=== PATIENT | male | born 1965 | race Two or more races ===

== ENCOUNTER 2017-10-02 10:00 | Inpatient (IN) | payer OTHER ==
[2017-09-23 11:37] VITALS: BMI 25.9
--- NOTE | 2017-09-30 14:19 | HP ---
HISTORY OF PRESENT ILLNESS Patient is a 51-year-old male, with a past medical history of hypertension, hyperlipidemia, and osteoarthritis. Patient is pending elective right total knee replacement scheduled for 10/02/[address] Manley PCP: Dr Madrid Recent travel:None Family History:Mother, alive and well, hypertension, hyperlipidemia father, unknown cause of sister, hypertension alive and well Social History:Resides at home, employed as a estimator project manager at the [employer] Smoking: none Alcohol:none Drugs: none REVIEW OF SYSTEMS CONSTITUTIONAL: Absent: fever, chills, diaphoresis, generalized weakness, malaise, loss of appetite, weight change HEENT: Absent: rhinorrhea, nasal congestion, throat pain, throat swelling, difficulty swallowing, mouth swelling, ear pain, eye pain, visual changes CARDIOVASCULAR: Absent: chest pain, syncope, palpitations, irregular heart rate, lightheadedness , peripheral edema RESPIRATORY: Absent: cough, shortness of breath, dyspnea with exertion, orthopnea, wheezing, stridor, hemoptysis GASTROINTESTINAL: Absent: abdominal pain, abdominal distension, nausea, vomiting, diarrhea, constipation, melena, hematochezia GENITOURINARY: Absent: dysuria, frequency, urgency, hesitancy, hematuria, flank pain, genital pain MUSCULOSKELETAL: Absent: myalgia, arthralgia, joint swelling, back pain, neck pain SKIN: Absent: rash, itching, pallor HEMATOLOGIC/IMMUNOLOGIC: Absent: easy bleeding, easy bruising, lymphadenopathy, frequent infections ENDOCRINE: Absent: unexplained weight gain, unexplained weight loss, heat intolerance, cold intolerance NEUROLOGIC: Absent: headache, focal weakness or paresthesias, dizziness, unsteady gait, seizure, mental status changes, bladder or bowel incontinence PSYCHIATRIC: Absent: anxiety, depression, suicidal or homicidal ideation, hallucinations. PHYSICAL EXAMINATION: GENERAL: Awake, alert, and fully oriented, in no acute distress. HEAD: Normal with no signs of trauma. EYES: Pupils equal, round and reactive to light, extraocular movements intact, sclera anicteric, conjunctiva clear. No lid lag. EARS, NOSE, THROAT: Ears normal, nares patent, oropharynx clear without exudates. Moist mucous membranes. NECK: Normal range of motion, supple without lymphadenopathy, JVD, or masses. LUNGS: Breath sounds equal, clear to auscultation bilaterally. No wheezes, and no crackles. No accessory muscle use. HEART: Regular rate and rhythm, normal S1 and S2 without murmur, rub or gallop. ABDOMEN: Soft, nontender, not distended, normoactive bowel sounds, no guarding, no rebound, no masses. No hepatomegaly or splenomegaly. MUSCULOSKELETAL: Normal range of motion at all joints. No bony deformities or tenderness. No CVA tenderness. UPPER EXTREMITIES: 2+ pulses, warm, well-perfused. No cyanosis. No clubbing. No peripheral edema. LOWER EXTREMITIES: 2+ pulses, warm, well-perfused. No calf tenderness. No peripheral edema. Right knee pain upon flexion and extension, no erythema no deformity noted NEUROLOGICAL: Cranial nerves II-XII intact. Normal speech. Normal gait. PSYCHIATRIC: Cooperative. Good eye contact. Appropriate mood and affect. SKIN: Warm, dry, normal turgor, no rashes or lesions noted, normal capillary refill. ASSESSMENT/PLAN: 1) mS Pending right total knee replacement On October [address] Manley 2) cardiovascular hypertension -Continue valsartan hydrochlorothiazide, Strict blood pressure monitoring
[2017-10-02] MEDS ORDERED: TRANEXAMIC ACID 1000 MG/10 ML VIAL IVPUSH ONE (11:48)
[2017-10-02] MEDS ORDERED: oxyCODONE HCL 10 MG SUSTAINED ACTING TABLET PO ONE (11:48)
[2017-10-02] MEDS ORDERED: CEFAZOLIN 2 GM/D5W 2 GM/50 ML ML IVPB ONE (11:48)
--- NOTE | 2017-10-02 11:55 | HP ---
History & Physical Update - History History: No Change - Physical Physical: No Change - Assessment Assessment: No Change - Plan Plan: No Change (full H&P from 09/30/2017)
[2017-10-02] MEDS ORDERED: ceFAZolin SODIUM 1 GM VIAL ONE ×2 (12:51→17:31)
[2017-10-02] MEDS ORDERED: DEXAMETHASONE SOD PHOSPHATE 4 MG/1 ML VIAL ONE (12:51)
[2017-10-02] MEDS ORDERED: ONDANSETRON 4 MG/2 ML VIAL ONE (12:51)
[2017-10-02] MEDS ORDERED: VANCOMYCIN 1,000 MG VIAL (RESTRICTED TO ID ONLY) ONE (12:51)
[2017-10-02] MEDS: oxyCODONE HCL 10 MG SUSTAINED ACTING TABLET PO ONE (13:00)
[2017-10-02] MEDS ORDERED: BUPIVACAINE HCL/PF (5 MG/ML) 30 ML VIAL IJ ONE (13:19)
[2017-10-02] MEDS ORDERED: BUPIVACAINE LIPOSOME/PF (EXPAREL) 266 MG/20 ML VIAL ONE (13:19)
[2017-10-02] MEDS ORDERED: SODIUM CHLORIDE 0.9% P/F 10 ML VIAL IJ ONE (13:19)
[2017-10-02] MEDS ORDERED: MIDAZOLAM HCL 2 MG/2 ML SINGLE DOSE VIAL ONE (13:19)
[2017-10-02] MEDS ORDERED: BENZOIN/ALOE VERA/STORAX/TOLU 58 ML BOTTLE ONE (13:35)
[2017-10-02] MEDS ORDERED: PROPOFOL 20 ML ONE ×3 (15:32→17:03)
[2017-10-02] MEDS ORDERED: ePHEDrine SULFATE 50 MG/1 ML AMPULE ONE (15:53)
[2017-10-02] MEDS ORDERED: MAG HYDROX/AL HYDROX/SIMETH 30 ML UNIT-DOSE CUP PO PRN (15:58)
[2017-10-02] MEDS ORDERED: ONDANSETRON 4 MG/2 ML VIAL IVPUSH PRN ×2 (15:58→18:03)
[2017-10-02] MEDS ORDERED: MAGNESIUM HYDROX 2400MG/30ML ORAL SUSPENSION 30 ML CUP PO PRN (15:58)
--- NOTE | 2017-10-02 17:58 | PN ---
Progress Note (short form) - Note Progress Note: S/P R TKA R TKA POD #0 - Pain control. -DVT PPx: -Chemical: ASA 81 mg po BID x 6 weeks -Mechanical: REGINA's, SCD's -Incentive Spirometry. -PT/OT/Rehab, OOB. -WBAT LLE RLE. -f/u drain output -f/u am labs. -Care per medical hospitalist team. -Discharge planning: f/u [facility] [place] office supervisor of operations for appointment: -Will follow. Brayan Manley MD (Orthopaedic Surgery)
[2017-10-02] MEDS ORDERED: LACTATED RINGERS SOLUTION 1,000 ML IV SCH (18:00)
--- NOTE | 2017-10-02 18:00 | OP ---
Operative Note - Note: Operative Date: 10/02/17 Pre-Operative Diagnosis: right knee DJD Operation: right total knee replacement Surgeon: Brayan Manley Medical Technician Assistant: Ricardo Manley Anesthesia: Spinal Estimated Blood Loss (mls): 75 Drains & Tubes with Location: 1 x deep Hemovac Fluid Volume Replaced (mls): 400 Operative Report Dictated: Yes
[2017-10-02] MEDS ORDERED: oxyCODONE HCL 5 MG TABLET PO PRN (18:03)
[2017-10-02] MEDS ORDERED: PROMETHAZINE HCL 25 MG/1 ML VIAL IVPUSH PRN (18:03)
[2017-10-02] MEDS ORDERED: ACETAMINOPHEN 325 MG TABLET (FP) PO ONE (18:15)
[2017-10-02] MEDS ORDERED: VANCOMYCIN 1 GRAM (PRE-DOCKED) 1,000 MG/250 ML BAG IVPB ONE (18:15)
[2017-10-02] MEDS: ASPIRIN COATED 81 MG TABLET.EC PO SCH (21:21)
[2017-10-02] MEDS: oxyCODONE HCL 10 MG SUSTAINED ACTING TABLET PO SCH (21:21)
[2017-10-02] MEDS: GABAPENTIN 300 MG CAPSULE (FP) PO SCH (21:21)
[2017-10-02] MEDS ORDERED: ASPIRIN 325 MG TABLET PO SCH (22:00)
[2017-10-02] MEDS ORDERED: GABAPENTIN 300 MG CAPSULE (FP) PO SCH (22:00)
[2017-10-02] MEDS: SENNOSIDES/DOCUSATE COMBO (SENNA PLUS) TABLET (UD) PO SCH (23:30)
[2017-10-02] MEDS: oxyCODONE HCL 5 MG TABLET PO PRN (23:30)
[2017-10-02] MEDS: CEFAZOLIN 1 GM/D5W 1 GM/50 ML BAG IVPB SCH (23:30)
[2017-10-03] MEDS: oxyCODONE HCL 5 MG TABLET PO PRN (05:30)
[2017-10-03] MEDS: ACETAMINOPHEN 325 MG TABLET (FP) PO SCH ×5 (06:38→17:47)
--- NOTE | 2017-10-03 07:11 | OP ---
DATE OF OPERATION: 10/02/2017 SURGEON: Brayan Manley M.D. BIOFUELS MANAGER: Ricardo Manley M.D., Filomena Meng PREOPERATIVE DIAGNOSIS: Severe tricompartmental osteoarthritis right knee with fixed varus and fixed flexed deformity. POSTOPERATIVE DIAGNOSIS: Severe tricompartmental osteoarthritis right knee with fixed varus and fixed flexed deformity. OPERATION PERFORMED: Right cemented posterior stabilized (Angelina knee). ANESTHESIA: Adductor block with spinal epidural anesthesia. ANTIBIOTICS GIVEN: 2 g Kefzol, 1 g vancomycin accordingly. OPERATION IN DETAIL: Patient correctly identified. Brought into the operating room. Timeout was called. Imaging was available for intraoperative evaluation. Midline incision utilized. The plane on the proximal medial aspect of the tibia was developed. A longitudinal incision was made in the quadriceps tendon curved around the medial aspect of the patella to the medial aspect of the tibia. This was flapped open to give excellent exposure to severe tricompartment osteoarthritis of the knee. Using Hohmann retractors posteriorly to lift the knee forward, the tibial cut was made to 90 degrees of the tibial shaft, and this was a bowed tibia to start with. The femoral bone cuts were made with the appropriate jig system. The patella was cut free hand from patella ligament to quadriceps tendon, and the appropriate lollipop jig for 27 mm patella button performed. Once this had been performed, the femur was cut using the jig system to receive a size 6 Triathlon posterior stabilized femur. The tibia measured a size 6 for universal baseplate. The polyethylene was a 27-mm polyethylene structure, and the polyethylene liner for the tibia was a posterior stabilized 6 x 11 mm polyethylene. Once the jig cuts and trialing components had been made and satisfactory alignment as well as satisfactory stability in the coronal and sagittal plane and patella tracking, which although slightly tilted and fixed with a small lateral release, all components were inserted and seated well, all extraneous cement removed, thorough lavage performed following this. Prior to cementing the implants, the bone bed was thoroughly lavaged with pulse lavage and the cement was mixed and placed in a slightly more liquid form that is low viscosity cement status for better bony ingrowth for this young patient. The knee, clinically postoperatively looked in a far better position with full extension. The tibia was extensively bowed. Closure as follows: Fascia, parapatellar tendon 1 Vicryl, subcutaneous 1 and 2-0 Vicryl, skin 3-0 Monocryl with Steri-Strips, drainage one 8-inch x1. Overall comment: Operation went well, no complications. MD JEREMY [id number]
[2017-10-03] MEDS: oxyCODONE HCL 10 MG SUSTAINED ACTING TABLET PO ONE (07:50)
--- NOTE | 2017-10-03 08:53 | PN ---
Progress Note (short form) - Note Progress Note: surgery POD #1 right TKA patient seen and examined at bedside. Patient states he vomited twice with the pain meds and has had slight nausea this morning. He is tolerating a regular diet although has a diminished appetite. He denies any CP, SOB, fever, or chills. Vital Signs Temp 97.5 F L 10/03/ 06:00 Pulse 68 10/03/17 06:00 Resp 18 10/03/17 06:00 BP 127/56 10/03/17 06:00 Pulse Ox 95 10/03/17 08:26 Intake & Output 10/02/17 10/02/17 10/03/17 11:59 23:59 11:59 Intake Total 1100 Output Total 10 503 Balance 1090 -503 Weight 163 lb Intake: IV 600 Oral 500 Output: Drainage 10 3 Left Knee 10 3 Urine 0 500 Void 0 500 Other: Voiding Method Urinal Urinal Height 5 ft 6.5 in Body Mass Index (BMI) 25.9 Weight Measurement Method Standing Scale PE: A&Ox3, NAD unlabore resp on RA right knee dressing C/D/I with drain in place. diffuse edema throughout appropriate to status. ROM from 0-75 degrees. b/l LE compartments soft, supple and non-tender to palpation with + 2 pedal pulses b/l Dorsi/plantar flexion 5/5. Problem List - Problems (1) S/P total knee arthroplasty Assessment/Plan: POD #1 doing well with some vomiting likely sensitive to Oxycodone. 1) continue DVT prophylaxis with Aspirin 81mg BID x 6 weeks 2) OOB with walker and assist WBAT 3) encourage IS 4) D/c planning for home tomorrow after drain removed. Code(s): Z96.659 - PRESENCE OF UNSPECIFIED ARTIFICIAL KNEE JOINT
[2017-10-03] MEDS ORDERED: traMADol HCL 50 MG TABLET PO PRN (09:09)
[2017-10-03 09:21] LABS: HEMATOCRIT 39.2 % (35.4-49); HEMOGLOBIN 13.2 GM/dl (11.7-16.9); MCHC 33.7 g/dl (32.0-35.9); MEAN PLT VOLUME 8.5 fl (7.5-11.1); PLATELET COUNT 230 K/MM3 (134-434); RBC 4.56 M/mm3 (4.00-5.60); RDW 13.4 % (11.9-15.9); WHITE BLOOD COUNT 14.8 K/mm3 (4.0-10.8)
[2017-10-03] MEDS: SENNOSIDES/DOCUSATE COMBO (SENNA PLUS) TABLET (UD) PO SCH ×2 (09:21→21:18)
[2017-10-03] MEDS: PANTOPRAZOLE 40 MG TABLET (FP) PO SCH (09:21)
[2017-10-03] MEDS: CEFAZOLIN 1 GM/D5W 1 GM/50 ML BAG IVPB SCH (09:21)
[2017-10-03] MEDS: HYDROCHLOROTHIAZIDE 25 MG TABLET (FP) PO SCH (09:22)
[2017-10-03] MEDS: oxyCODONE HCL 10 MG SUSTAINED ACTING TABLET PO SCH ×2 (09:23→21:18)
[2017-10-03] MEDS: VALSARTAN 160 MG TABLET (UD) PO SCH (09:23)
[2017-10-03] MEDS: GABAPENTIN 300 MG CAPSULE (FP) PO SCH ×2 (09:23→21:17)
[2017-10-03] MEDS: MULTIVITAMINS (DAILY MVI) TABLET (FP) PO SCH (09:24)
[2017-10-03] MEDS: ASPIRIN COATED 81 MG TABLET.EC PO SCH ×2 (09:24→21:17)
[2017-10-03 09:25] LABS: ANION GAP 6 (8-16); BLOOD UREA NITROGEN 14 mg/dl (7-18); CALCIUM 9.1 mg/dl (8.4-10.2); CHLORIDE 101 mmol/L (98-107); CO2 25 mmol/L (22-28); GLUCOSE,RANDOM 163 mg/dl (74-106); POTASSIUM 4.1 mmol/L (3.5-5.1); SODIUM 132 mmol/L (136-145)
[2017-10-03] MEDS ORDERED: PATIENT'S OWN MEDICATION (NON-FORMULARY) (Valsartan/Hydrochlorothiazide [Valsartan-Hctz 32 PO SCH (10:00)
[2017-10-03] MEDS ORDERED: ROSUVASTATIN CA 40 MG TABLET PO SCH (22:00)
[2017-10-04] MEDS: ACETAMINOPHEN 325 MG TABLET (FP) PO SCH ×2 (00:40→06:14)
[2017-10-04 08:14] LABS: HEMATOCRIT 35.6 % (35.4-49); HEMOGLOBIN 12.4 GM/dl (11.7-16.9); MCH 29.9 pg (25.7-33.7); MCHC 34.7 g/dl (32.0-35.9); MEAN CELL VOLUME 86.2 fl (80-96); MEAN PLT VOLUME 8.5 fl (7.5-11.1); PLATELET COUNT 201 K/MM3 (134-434); RBC 4.14 M/mm3 (4.00-5.60); RDW 13.5 % (11.9-15.9); WHITE BLOOD COUNT 12.8 K/mm3 (4.0-10.8)
--- NOTE | 2017-10-04 09:59 | DS ---
"Physical Exam: SUBJECTIVE: Patient seen and examined, patient reports feeling well, ambulated the hallway without difficulty with a walker, denies any chest pain or shortness of breath, reports minimal pain to the right lower extremity, he denies any paresthesia to the extremity. OBJECTIVE: Patient is a 51-year-old male, with a past medical history of hypertension, hyperlipidemia, and osteoarthritis. Patient is s/p right total knee replacement , 10/02/[address] Gibson, spinal anesthesia. Vital Signs Period Temp Pulse Resp BP Sys/Cook Pulse Ox Last 24 Hr 98.4 F-99.2 F 72-80 18-21 108-125/54-71 96-100 PHYSICAL EXAM GENERAL: The patient is awake, alert, and fully oriented, in no acute distress. HEAD: Normal with no signs of trauma. EYES: PERRL, extraocular movements intact, sclera anicteric, conjunctiva clear. ENT: Ears normal, nares patent, oropharynx clear without exudates, moist mucous membranes. NECK: Trachea midline, full range of motion, supple. LUNGS: Breath sounds equal, clear to auscultation bilaterally, no wheezes, no crackles, no accessory muscle use. HEART: Regular rate and rhythm, S1, S2 without murmur, rub or gallop. ABDOMEN: Soft, nontender, nondistended, normoactive bowel sounds, no guarding, no rebound, no hepatosplenomegaly, no masses. EXTREMITIES: 2+ pulses, warm, well-perfused, no edema. RIGHT LOWER EXTREMITY: dressing cdi, less than 3 second cappillary refill, + 3 pedal pulse. NEUROLOGICAL: Cranial nerves II through XII grossly intact. Normal speech, gait not observed. PSYCH: Normal mood, normal affect. SKIN: Warm, dry, normal turgor, no rashes or lesions noted. LABS Laboratory Results - last 24 hr 10/04/17 08:00 WBC 12.8 H RBC 4.14 Hgb 12.4 Hct 35.6 MCV 86.2 MCH 29.9 MCHC 34.7 RDW 13.5 Plt Count 201 MPV 8.5 HOSPITAL COURSE: Patient was admitted to the medical surgical floor after an elective right total knee replacement, Dr gibson, spinal anesthesia. patient ambulated the hallway with physical therapy on post operative day 1 and physical therapy (home ) was recommend upon discharge. Patient's pain was controlled with narcotic and non-narcotic medications. Patient's hemovac drain was removed on post operative day 2, intact and patient tolerated well. He has a past medical history of hypertension, valsartan/hctz was continued throughout admission. Blood pressure remained at goal. Date of Admission:10/02/17 Date of Discharge: 10/04/17 Minutes to complete discharge: 45 Discharge Summary Reason For Visit: UNILATERAL POST TRAUMATIC OA RIGHT KNEE Current Active Problems S/P total knee arthroplasty (Acute) Condition: Improved - Instructions Diet, Activity, Other Instructions: Dr. Gibson Discharge instructions for Knee Replacement Post-Op Instructions: Physical Activity: Physical Therapy will come to your home for the first 5 days. You will be set up with outpatient PT at your first post-operative visit. Use assistive devices for ambulation at all times. Weight bearing as tolerated on your surgical side. Do not put pillows under your knee. You may place pillows under the heel. Wound care: Leave your surgical dressing in place. Do not change the dressing until seen by your surgeon in the office. No baths or showers. Do not submerge your incision in water. Do not apply any ointments or lotions to your incision. Please call the office if our dressing is soiled/dirty or is falling off. Apply graduated compression stockings (TEDS) to both lower extremities-remove daily for hygiene only. Diet: There are no dietary restrictions: Eat healthy, high-fiber foods. Drink 6 to 8 glasses of liquid each day. This will keep your bowels regular. Pain Management: Any pain prescription medications ordered should be taken as prescribed for moderate to severe pain. Do not take additional Tylenol while taking Percocet. TAKE ASPIRIN 81MG TWO TIMES A DAY FOR A TOTAL OF 6 WEEKS TO PREVENT BLOOD CLOTS. Call Dr. Gibson for any of the following: Severe pain not relieved by medications Fever of 101 or higher Excessive bleeding or drainage on the dressing If you experience chest pain or shortness of breath, please seek emergency care immediately. Please call the office at to confirm your post-op appointment for the week following your surgery. [place] prescription monitoring program This report was requested by: Chela Ventura | Reference #: [id number] Others' Prescriptions Patient Name: Harman Albert Date: 1965 Address: [address] [place] [address] Sex: Male Rx Written Rx Dispensed Drug Quantity Days Supply Prescriber Name 09/19/2017 09/21/2017 hydrocodone-acetaminophen 7.5-300 mg tablet 90 30 Brayan Gibson MS, MD Referrals: Ricardo Gibson MD [Staff Physician] - Disposition: VNS/HOME HEALTH CARE - Home Medications Comprehensive Discharge Medication List: Ambulatory Orders Rosuvastatin [Crestor -] 40 mg PO DAILY 09/23/17 Valsartan/Hydrochlorothiazide [Valsartan-Hctz 320-25 mg Tab] 1 each PO DAILY Hydrocodone/Acetaminophen [Vicodin Es 7.5-300 mg Tablet] 1 each PO BID PRN 10/02 This patient is new to me today: No Emergency Visit: No Critical Care patient: No - Discharge Referral Referred to [facility] No"
[2017-10-04] MEDS: VALSARTAN 160 MG TABLET (UD) PO SCH (10:17)
[2017-10-04] MEDS: ASPIRIN COATED 81 MG TABLET.EC PO SCH (10:17)
[2017-10-04] MEDS: PANTOPRAZOLE 40 MG TABLET (FP) PO SCH (10:17)
[2017-10-04] MEDS: GABAPENTIN 300 MG CAPSULE (FP) PO SCH (10:17)
[2017-10-04] MEDS: MULTIVITAMINS (DAILY MVI) TABLET (FP) PO SCH (10:17)
[2017-10-04] MEDS: SENNOSIDES/DOCUSATE COMBO (SENNA PLUS) TABLET (UD) PO SCH (10:18)
[2017-10-04] MEDS: HYDROCHLOROTHIAZIDE 25 MG TABLET (FP) PO SCH (10:18)
[2017-10-04] MEDS: oxyCODONE HCL 10 MG SUSTAINED ACTING TABLET PO SCH (10:18)
[2017-10-04 10:22] VITALS: BP 139/70; PULSE 70; TEMP 98.9
--- NOTE | 2017-10-10 14:43 | PATH ---
Surgical Pathology Report Patient Name: QING CARDOSO Med. Rec. #: [id number] /Age/Gender: 1965 (Age: 51) / M Account: [id number] Location: [facility] MED-SURG Taken: 10/02/2017 Received: 10/02/2017 Reported: 10/10/2017 Physicians: Brayan Manley M.D. Specimen(s) Received BONE RIGHT KNEE Clinical History Osteoarthritis Final Diagnosis BONE, RIGHT KNEE, TOTAL KNEE REPLACEMENT: DEGENERATIVE JOINT DISEASE. Electronically Signed Chela Moy M.D. Gross Description Received in formalin labeled "bone right knee," is a 14.0 x 13.5 x 2.4 cm aggregate of multiple portions of bone and soft tissue, consistent with knee bones. There are multiple areas of eburnation present, measuring up to 3.0 cm the greatest dimension. The remaining articular surfaces are garvin-yellow and focally nodular. The underlying trabecular bone is yellow and hard. Spray Unit Feeder sections are submitted in one cassette, following decalcification. 10/04/2017 [facility]10/04/2017
== END 2017-10-04 11:07 | disposition home health service (06) | DRG 302 ==
LOC: FM/S 11:24 → OBSVTOIN 11:24 → UNDOADMOB 11:24 → INTOOBSV 11:24 → FM/S 11:24
PROVIDERS: ADMIT Orthopaedic Surgery Orthopaedic Surgery of the Spine; ATTEND Orthopaedic Surgery Orthopaedic Surgery of the Spine
PROC: 0SRC069 Replacement of Right Knee Joint with Oxidized Zirconium on Polyethylene Synthetic Substitute, Cemented, Open Approach (ICD-10-PCS; principal; 2017-10-02 16:07)
DX: M17.11 Unilateral primary osteoarthritis, right knee (principal); M21.161 Varus deformity, not elsewhere classified, right knee; I10 Essential (primary) hypertension; E78.5 Hyperlipidemia, unspecified
CPT/HCPCS: 36415; 73560-TC-RT-FY; 80048; 85027; 88304-TC; 88311-TC; 94760; 97116-GP; 97162-GP

== ENCOUNTER 2018-02-07 06:37 | Day surgery (SDC) | payer OTHER ==
[2018-01-31 12:44] VITALS: BMI 26.4
[2018-02-07] MEDS ORDERED: ceFAZolin SODIUM 1 GM VIAL IVPB ONE (08:13)
--- NOTE | 2018-02-07 08:54 | OP ---
Operative Note - Note: Operative Date: 02/07/18 Pre-Operative Diagnosis: Right 4th trigger finger Operation: Open right 4th trigger finger release Findings: Tourniquet Pressure: 250mmHg Tourniquet Time: 13 minutes Post-Operative Diagnosis: Same as Pre-op Surgeon: Brayan Manley Hollow Handle Knife Assembler: Ricardo Manley Anesthesiologist/ASSISTANT ELEMENTARY TEACHER: Joey Black Anesthesia: General (LMA) Estimated Blood Loss (mls): 0 Fluid Volume Replaced (mls): 400 (Crystalloid) Operative Report Dictated: Yes
--- NOTE | 2018-02-07 08:56 | PN ---
Progress Note (short form) - Note Progress Note: 52M s/p open RIGHT 4th trigger finger release POD #0. -Pain control: Meloxicam, Percocet ordered to patient's pharmacy from out outpatient office. -NWB RUE. -Keep dressing clean and dry. -f/u [facility] [place] office Saturday02/14/2018; call for appointment; . Brayan Manley MD (Orthopaedic Surgery).
[2018-02-07] MEDS ORDERED: ONDANSETRON 4 MG/2 ML VIAL IVPUSH PRN (09:02)
[2018-02-07] MEDS ORDERED: oxyCODONE HCL 5 MG TABLET PO PRN (09:02)
[2018-02-07] MEDS ORDERED: LACTATED RINGERS SOLUTION 1,000 ML IV SCH (09:15)
[2018-02-07] MEDS ORDERED: ONDANSETRON 4 MG/2 ML VIAL ONE (09:19)
[2018-02-07] MEDS ORDERED: PROMETHAZINE HCL 25 MG/1 ML VIAL ONE (09:31)
[2018-02-07] MEDS ORDERED: PROMETHAZINE HCL 25 MG/1 ML VIAL IVPUSH PRN (09:32)
[2018-02-07] MEDS ORDERED: LOSARTAN 50MG/HCTZ 12.5MG 1 TAB (FP) PO SCH (10:00)
[2018-02-07] MEDS ORDERED: PATIENT'S OWN MEDICATION (NON-FORMULARY) (Losartan/Hydrochlorothiazide [Losartan-Hctz 100- PO SCH (10:00)
[2018-02-07 10:45] VITALS: BP 118/74; PULSE 68; TEMP 98
--- NOTE | 2018-02-07 14:07 | OP ---
DATE OF OPERATION: 02/07/2018 SURGEON: Brayan Manley MD LOADER OPERATOR SUPERVISOR: Ricardo Manley MD PREOPERATIVE DIAGNOSIS: Right 4th finger trigger-finger. POSTOPERATIVE DIAGNOSIS: Right 4th finger trigger-finger. OPERATION PERFORMED: Right trigger-finger release. ANESTHESIA: General. TOURNIQUET TIME: 13 minutes. OPERATION IN DETAIL: The patient was positioned supine, right upper extremity prepped in the routine manner with Betadine scrub solution, wiped with alcohol. DuraPrep applied. A free drape of the right upper extremity performed. Time-out was called. Imaging was available for intraoperative evaluation. The right hand was placed, the palmar aspect was facing upwards. In the primary crease, that is the transverse crease, the incision was made over the 4th MPJ (that is metacarpophalangeal joint), a transverse incision resulted in easy exposure to the palmar aponeurosis. This was transected, taking the dissection down to the A1 bryn. The A1 bryn was then freed. Metzenbaum scissors placed deep to the bryn, and the bryn incised about 1.5 cm distal to the structure. Approximately a small adherent area of fibrous tissues also freed appropriately. No complications. Hemostasis was achieved with bipolar Bovie. The wounds were lavaged and closed with 3-0 nylon interrupted sutures. Brayan Manley MD [id number]
== END 2018-02-07 11:15 | disposition home or self-care (01) ==
LOC: FASU 06:37
PROVIDERS: ATTEND Orthopaedic Surgery Orthopaedic Surgery of the Spine
PROC: 0LN70ZZ Release Right Hand Tendon, Open Approach (ICD-10-PCS; principal; 2018-02-07 09:00)
DX: M65.341 Trigger finger, right ring finger (principal)
CPT/HCPCS: 94760

== ENCOUNTER 2020-05-13 07:12 | Day surgery (SDC) | payer BC, OTHER ==
[2020-05-09 10:09] VITALS: BMI 26.2
[2020-05-13] MEDS ORDERED: BUPIVACAINE HCL/PF 2.5 MG/ML - 30 ML VIAL IJ ONE (08:05)
[2020-05-13] MEDS ORDERED: methylPREDNISolone ACET (DEPO) 40 MG/1 ML VIAL ONE (08:05)
[2020-05-13] MEDS ORDERED: BUPIVACAINE HCL/PF 0.25% (2.5MG/ML) 10 ML VIAL ONE (08:16)
[2020-05-13] MEDS ORDERED: MIDAZOLAM HCL 2 MG/2 ML SINGLE DOSE VIAL ONE (08:47)
[2020-05-13] MEDS ORDERED: PROPOFOL 20 ML ONE ×2 (08:50)
[2020-05-13] MEDS ORDERED: SUCCINYLCHOLINE CHLORIDE 200 MG/10 ML SYRINGE ONE (08:50)
[2020-05-13] MEDS ORDERED: ONDANSETRON 4 MG/2 ML VIAL ONE ×2 (08:51→09:58)
[2020-05-13] MEDS ORDERED: ceFAZolin SODIUM 1 GM VIAL ONE (08:59)
[2020-05-13] MEDS ORDERED: ceFAZolin SODIUM 1 GM VIAL IVPB ONE (09:01)
[2020-05-13] MEDS ORDERED: DEXAMETHASONE SOD PHOSPHATE 4 MG/1 ML VIAL ONE (09:17)
[2020-05-13] MEDS ORDERED: oxyCODONE HCL 5 MG TABLET PO PRN (09:49)
[2020-05-13] MEDS ORDERED: ONDANSETRON 4 MG/2 ML VIAL IVPUSH PRN (09:49)
[2020-05-13] MEDS ORDERED: ACETAMINOPHEN 1000 MG/100 ML VIAL (NON FORMULARY) IVPB ONE (09:51)
[2020-05-13] MEDS ORDERED: ACETAMINOPHEN INJECTION 100 ML IVPB ONE (09:58)
[2020-05-13] MEDS ORDERED: ROSUVASTATIN CA 20 MG TABLET (FP) PO SCH (10:00)
[2020-05-13] MEDS ORDERED: LOSARTAN 50MG/HCTZ 12.5MG 1 TAB PO SCH (10:00)
[2020-05-13] MEDS ORDERED: oxyCODONE HCL 5 MG TABLET ONE (10:41)
[2020-05-13 11:04] VITALS: TEMP 98.2
[2020-05-13 11:50] VITALS: BP 114/72; PULSE 66
== END 2020-05-13 11:30 | disposition home or self-care (01) ==
LOC: FASU 07:12
PROVIDERS: ATTEND Orthopaedic Surgery Orthopaedic Surgery of the Spine
PROC: 0LN70ZZ Release Right Hand Tendon, Open Approach (ICD-10-PCS; principal; 2020-05-13 09:00)
DX: M65.311 Trigger thumb, right thumb (principal)
CPT/HCPCS: 94760; J0131

== ENCOUNTER 2023-01-16 05:59 | Day surgery (SDC) | payer BC ==
[2023-01-14 09:29] VITALS: BMI 27.9
[2023-01-16] MEDS ORDERED: SUCCINYLCHOLINE CHLORIDE 200 MG/10 ML SYRINGE ONE (07:18)
[2023-01-16] MEDS ORDERED: ceFAZolin SODIUM 1 GM VIAL ONE ×2 (07:22→11:54)
[2023-01-16] MEDS ORDERED: METOCLOPRAMIDE HCL INJECTION 10 MG/2 ML VIAL ONE (07:22)
[2023-01-16] MEDS ORDERED: SODIUM CHLORIDE 0.9% P/F 10 ML VIAL IJ ONE ×2 (07:22→08:09)
[2023-01-16] MEDS ORDERED: DEXAMETHASONE SOD PHOSPHATE 4 MG/1 ML VIAL ONE (07:22)
[2023-01-16] MEDS ORDERED: ONDANSETRON 4 MG/2 ML VIAL ONE (07:22)
[2023-01-16] MEDS ORDERED: PROPOFOL 80 ML ONE (07:24)
[2023-01-16] MEDS ORDERED: MIDAZOLAM HCL 2 MG/2 ML SINGLE DOSE VIAL ONE ×2 (07:25→08:59)
[2023-01-16] MEDS ORDERED: BUPIVACAINE LIPOSOME/PF (EXPAREL) 266 MG/20 ML VIAL ONE (07:36)
[2023-01-16] MEDS ORDERED: BUPIVACAINE HCL/PF 0.5% (5MG/ML) 10 ML VIAL ONE (07:36)
[2023-01-16] MEDS ORDERED: VANCOMYCIN 1,000 MG VIAL (RESTRICTED TO ID ONLY) ONE (09:40)
[2023-01-16] MEDS ORDERED: TRANEXAMIC ACID 1000 MG/10 ML VIAL ONE ×2 (09:49→11:53)
[2023-01-16] MEDS ORDERED: PROPOFOL 40 ML ONE ×2 (10:56→11:38)
[2023-01-16] MEDS ORDERED: LACTATED RINGERS SOLUTION 1,000 ML IV SCH ×2 (13:15→14:30)
[2023-01-16] MEDS ORDERED: LABETALOL HCL 5 MG/1 ML (100MG/20 ML VIAL) ONE (13:25)
[2023-01-16] MEDS ORDERED: oxyCODONE HCL 5 MG TABLET PO PRN (14:12)
[2023-01-16] MEDS ORDERED: ONDANSETRON 4 MG/2 ML VIAL IVPUSH PRN ×2 (14:12→14:26)
[2023-01-16] MEDS ORDERED: NALOXONE HCL 0.4 MG/ML VIAL IVPUSH PRN (14:12)
[2023-01-16] MEDS ORDERED: IBUPROFEN 400 MG TABLET (FP) PO PRN (14:12)
[2023-01-16] MEDS: ACETAMINOPHEN 1000 MG/100 ML BAG IVPB SCH ×2 (14:20→21:38)
[2023-01-16] MEDS ORDERED: MAG HYDROX/AL HYDROX/SIMETH 30 ML UNIT-DOSE CUP PO PRN (14:26)
[2023-01-16] MEDS ORDERED: MAGNESIUM HYDROX 2400MG/30ML ORAL SUSPENSION 30 ML CUP PO PRN (14:26)
[2023-01-16] MEDS ORDERED: CEFAZOLIN SODIUM 2 GM in DEXTROSE 5%-WATER 100 ML IVPB SCH (14:30)
[2023-01-16] MEDS ORDERED: KETOROLAC TROMETHAMINE 15 MG/ML VIAL IVPUSH ONE (14:45)
[2023-01-16] MEDS ORDERED: KETOROLAC TROMETHAMINE 30 MG/1 ML VIAL ONE (14:47)
[2023-01-16] MEDS: oxyCODONE HCL 5 MG TABLET PO PRN ×2 (17:30→21:41)
[2023-01-16] MEDS: CEFAZOLIN SODIUM 2 GM in DEXTROSE 5%-WATER 100 ML IVPB SCH (18:34)
[2023-01-16] MEDS: CELECOXIB 200 MG CAPSULE PO SCH (21:39)
[2023-01-16] MEDS: DEXAMETHASONE 4 MG TABLET (FP) PO SCH (21:39)
[2023-01-16] MEDS: GABAPENTIN 300 MG CAPSULE PO SCH (21:39)
[2023-01-16] MEDS: oxyCODONE HCL 10 MG SUSTAINED ACTING TABLET PO SCH (21:42)
[2023-01-16] MEDS: ASPIRIN 81 MG CHEWABLE TABLETS PO SCH (21:43)
[2023-01-16] MEDS: SENNOSIDES/DOCUSATE COMBO (SENNA PLUS) TABLET (UD) PO SCH (21:43)
[2023-01-17] MEDS: CEFAZOLIN SODIUM 2 GM in DEXTROSE 5%-WATER 100 ML IVPB SCH ×2 (01:22→06:53)
[2023-01-17] MEDS: ACETAMINOPHEN 1000 MG/100 ML BAG IVPB SCH (06:22)
[2023-01-17] MEDS: oxyCODONE HCL 5 MG TABLET PO PRN ×3 (07:03→16:38)
[2023-01-17 07:22] LABS: HEMATOCRIT 38.7 % (35.4-49); HEMOGLOBIN 12.8 G/dL (11.7-16.9); MCH 29.2 pg (25.7-33.7); MEAN CELL VOLUME 88.4 fl (80-96); MEAN PLT VOLUME 8.5 fl (7.5-11.1); RBC 4.38 10^6/uL (4.00-5.60); RDW 14.9 % (11.9-15.9); WHITE BLOOD COUNT 15.3 10^3/uL (4.0-10.8)
[2023-01-17 07:35] LABS: ALBUMIN 3.7 g/dl (3.4-5.0); BILIRUBIN,TOTAL 0.8 mg/dl (0.2-1); BLOOD UREA NITROGEN 16.1 mg/dl (7-18); CALCIUM 9.1 mg/dl (8.5-10.1); POTASSIUM 4.4 mmol/L (3.5-5.1); SGOT/AST 28.4 U/L (15-37); SGPT/ALT 17.6 U/L (7-52); TOT PROT 5.8 g/dl (6.4-8.2)
[2023-01-17] MEDS: ACETAMINOPHEN 500 MG TABLET (FP) PO PRN ×2 (09:03→16:37)
[2023-01-17] MEDS: DOCUSATE SODIUM 100 MG CAPSULE (FP) PO SCH (09:59)
[2023-01-17] MEDS: SENNOSIDES/DOCUSATE COMBO (SENNA PLUS) TABLET (UD) PO SCH ×2 (09:59→22:04)
[2023-01-17] MEDS: PANTOPRAZOLE 40 MG TABLET PO SCH (09:59)
[2023-01-17] MEDS: CELECOXIB 200 MG CAPSULE PO SCH ×2 (09:59→22:04)
[2023-01-17] MEDS: DEXAMETHASONE 4 MG TABLET (FP) PO SCH ×2 (09:59→22:05)
[2023-01-17] MEDS: oxyCODONE HCL 10 MG SUSTAINED ACTING TABLET PO SCH ×2 (10:00→22:05)
[2023-01-17] MEDS: LOSARTAN 50MG/HCTZ 12.5MG 1 TAB PO SCH (10:00)
[2023-01-17] MEDS: ASPIRIN 81 MG CHEWABLE TABLETS PO SCH ×2 (10:00→22:05)
[2023-01-17] MEDS ORDERED: PATIENT'S OWN MEDICATION (NON-FORMULARY) (Losartan/Hydrochlorothiazide [Losartan-Hctz 100- PO SCH (10:00)
[2023-01-17] MEDS: GABAPENTIN 300 MG CAPSULE PO SCH ×2 (10:00→22:04)
[2023-01-18 08:32] LABS: ALBUMIN 3.7 g/dl (3.4-5.0); BILIRUBIN,TOTAL 0.6 mg/dl (0.2-1); BLOOD UREA NITROGEN 18.9 mg/dl (7-18); CALCIUM 9.1 mg/dl (8.5-10.1); POTASSIUM 4.5 mmol/L (3.5-5.1); SGOT/AST 28.6 U/L (15-37); SGPT/ALT 15.1 U/L (7-52); TOT PROT 5.8 g/dl (6.4-8.2)
[2023-01-18] MEDS: LOSARTAN 50MG/HCTZ 12.5MG 1 TAB PO SCH (09:05)
[2023-01-18] MEDS: oxyCODONE HCL 10 MG SUSTAINED ACTING TABLET PO SCH ×2 (09:05→21:13)
[2023-01-18] MEDS: CELECOXIB 200 MG CAPSULE PO SCH ×2 (09:05→21:13)
[2023-01-18] MEDS: DEXAMETHASONE 4 MG TABLET (FP) PO SCH ×2 (09:05→21:13)
[2023-01-18] MEDS: ASPIRIN 81 MG CHEWABLE TABLETS PO SCH ×2 (09:06→21:13)
[2023-01-18] MEDS: GABAPENTIN 300 MG CAPSULE PO SCH ×2 (09:06→21:13)
[2023-01-18] MEDS: PANTOPRAZOLE 40 MG TABLET PO SCH (09:06)
[2023-01-18] MEDS: ACETAMINOPHEN 500 MG TABLET (FP) PO PRN (09:06)
[2023-01-18] MEDS: oxyCODONE HCL 5 MG TABLET PO PRN ×3 (09:07→21:14)
[2023-01-18] MEDS: DOCUSATE SODIUM 100 MG CAPSULE (FP) PO SCH (09:10)
[2023-01-18] MEDS: SENNOSIDES/DOCUSATE COMBO (SENNA PLUS) TABLET (UD) PO SCH ×2 (09:10→21:13)
[2023-01-18 09:53] LABS: HEMATOCRIT 34.6 % (35.4-49); MCH 27.5 pg (25.7-33.7); MCHC 31.8 g/dl (32.0-35.9); MEAN CELL VOLUME 86.3 fl (80-96); MEAN PLT VOLUME 8.9 fl (7.5-11.1); PLATELET COUNT 230 10^3/uL (134-434); RBC 4.01 M/mm3 (4.00-5.60); RDW 14.5 % (11.9-15.9); WHITE BLOOD COUNT 14.7 K/mm3 (4.0-10.0)
[2023-01-18 10:37] LABS: ANISOCYTOSIS 1+; MACROCYTOSIS 0; OVALOCYTE 2+
[2023-01-19 06:15] VITALS: PULSE 66
[2023-01-19] MEDS: oxyCODONE HCL 5 MG TABLET PO PRN (07:41)
[2023-01-19 08:43] LABS: HEMATOCRIT 38.8 % (35.4-49); HEMOGLOBIN 12.1 G/dL (11.7-16.9); MCH 27.8 pg (25.7-33.7); MCHC 31.1 g/dl (32.0-35.9); MEAN CELL VOLUME 89.4 fl (80-96); PLATELET COUNT 232.6 10^3/uL (134-434); RBC 4.34 10^6/uL (4.00-5.60); RDW 15.6 % (11.9-15.9); WHITE BLOOD COUNT 15.3 10^3/uL (4.0-10.8)
[2023-01-19 08:53] LABS: ALBUMIN 3.7 g/dl (3.4-5.0); BILIRUBIN,TOTAL 0.6 mg/dl (0.2-1); BLOOD UREA NITROGEN 18.9 mg/dl (7-18); CALCIUM 9.4 mg/dl (8.5-10.1); CREATININE 0.8 mg/dl (0.6-1.3); POTASSIUM 4.3 mmol/L (3.5-5.1); SGOT/AST 23.9 U/L (15-37); SGPT/ALT 18.3 U/L (7-52)
[2023-01-19 09:23] VITALS: BP 145/84; RESP 17; TEMP 98.5
[2023-01-19] MEDS: GABAPENTIN 300 MG CAPSULE PO SCH (09:24)
[2023-01-19] MEDS: LOSARTAN 50MG/HCTZ 12.5MG 1 TAB PO SCH (09:24)
[2023-01-19] MEDS: oxyCODONE HCL 10 MG SUSTAINED ACTING TABLET PO SCH (09:24)
[2023-01-19] MEDS: SENNOSIDES/DOCUSATE COMBO (SENNA PLUS) TABLET (UD) PO SCH (09:24)
[2023-01-19] MEDS: DOCUSATE SODIUM 100 MG CAPSULE (FP) PO SCH (09:24)
[2023-01-19] MEDS: DEXAMETHASONE 4 MG TABLET (FP) PO SCH (09:24)
[2023-01-19] MEDS: PANTOPRAZOLE 40 MG TABLET PO SCH (09:24)
[2023-01-19] MEDS: CELECOXIB 200 MG CAPSULE PO SCH (09:24)
[2023-01-19] MEDS: ASPIRIN 81 MG CHEWABLE TABLETS PO SCH (09:24)
== END 2023-01-19 13:03 | disposition home health service (06) ==
LOC: FASUSAT 05:59 → FM/S 15:56 → FASUSAT 01-19 13:03
PROVIDERS: ATTEND Orthopaedic Surgery Orthopaedic Surgery of the Spine
PROC: 0SRT0J9 Replacement of Right Knee Joint, Femoral Surface with Synthetic Substitute, Cemented, Open Approach (ICD-10-PCS; 2023-01-16)
PROC: 0SBC0ZZ Excision of Right Knee Joint, Open Approach (ICD-10-PCS; 2023-01-16)
PROC: 0SNCXZZ Release Right Knee Joint, External Approach (ICD-10-PCS; 2023-01-16)
PROC: 0MNN0ZZ Release Right Knee Bursa and Ligament, Open Approach (ICD-10-PCS; 2023-01-16)
PROC: 0SPT0JZ Removal of Synthetic Substitute from Right Knee Joint, Femoral Surface, Open Approach (ICD-10-PCS; principal; 2023-01-16 10:34)
DX: M24.661 Ankylosis, right knee (principal); T84.032A Mechanical loosening of internal right knee prosthetic joint, initial encounter; Y79.2 Prosthetic and other implants, materials and accessory orthopedic devices associated with adverse incidents; Y92.9 Unspecified place or not applicable; Y83.8 Other surgical procedures as the cause of abnormal reaction of the patient, or of later complication, without mention of misadventure at the time of the procedure
CPT/HCPCS: 36415; 73560-TC-RT-FY; 80053; 85025; 85027; 86850; 86900; 86901; 88304-TC; 88305-TC; 88311-TC; 94760; 97010-GP; 97116-GP; 97162-GP; C1713; C1776